=== PATIENT | female | born 1990 | race Caucasian/White ===

== ENCOUNTER 2021-08-26 17:30 | Outpatient (CLI) | payer BC | END 2021-08-26 17:31 | disposition home or self-care (01) | LOC: SLEEPLAB 17:30 | PROVIDERS: ATTEND Family Medicine | DX: G47.33 Obstructive sleep apnea (adult) (pediatric) (principal); R53.83 Other fatigue; R09.89 Other specified symptoms and signs involving the circulatory and respiratory systems; K21.9 Gastro-esophageal reflux disease without esophagitis; R06.83 Snoring; F41.9 Anxiety disorder, unspecified; G47.00 Insomnia, unspecified; F98.8 Other specified behavioral and emotional disorders with onset usually occurring in childhood and adolescence; E66.9 Obesity, unspecified; Z68.38 Body mass index [BMI] 38.0-38.9, adult | CPT/HCPCS: 95800 ==

== ENCOUNTER 2024-03-15 09:33 | Outpatient (CLI) | payer BC ==
[2024-03-15] MEDS ORDERED: Magnevist 469MG/ML 20 ML VIAL ONE (15:33)
== END 2024-03-15 09:34 | disposition home or self-care (01) ==
LOC: BICMRI 09:33
PROVIDERS: ATTEND Internal Medicine Hematology & Oncology
DX: C50.811 Malignant neoplasm of overlapping sites of right female breast (principal)
CPT/HCPCS: C8908

== ENCOUNTER 2024-04-15 07:12 | Day surgery (SDC) | payer BC ==
[2024-04-15] MEDS ORDERED: Lidocaine 1% PF 5 ML VIAL ONE (09:19)
[2024-04-15] MEDS ORDERED: PROPOFOL 20 ML ONE (09:19)
[2024-04-15] MEDS ORDERED: Rocuronium Bromide 10 MG/ML (10ML VIAL) ONE (09:19)
[2024-04-15] MEDS ORDERED: fentaNYL PF 100 MCG/2 ML SYRINGE ONE ×2 (09:20→13:14)
[2024-04-15] MEDS ORDERED: Isosulfan Blue 50 MG/5 ML VIAL ONE ×2 (09:29→10:56)
[2024-04-15] MEDS ORDERED: EPINEPHrine 1 MG/ML VIAL ONE ×2 (09:29→09:39)
[2024-04-15] MEDS ORDERED: Bupivacaine 0.25% HCL 30 ML VIAL ONE (09:30)
[2024-04-15] MEDS ORDERED: Heparin 5,000 UNITS/ML VIAL ONE (10:46)
[2024-04-15] MEDS ORDERED: Acetaminophen 500 MG TAB ONE (10:47)
[2024-04-15] MEDS ORDERED: Ketorolac Tromethamine 30 MG (1 mL) VIAL ONE ×2 (10:47→15:53)
[2024-04-15] MEDS ORDERED: Scopolamine 1 mg/72 hour Patch ONE (10:47)
[2024-04-15] MEDS ORDERED: Lidocaine 1% MPF 2 ML VIAL ONE (10:47)
[2024-04-15] MEDS ORDERED: Lidocaine 1% (PF) 30 ML VIAL ONE (10:53)
[2024-04-15 11:05] LABS: #Basophils 0.04 10x3/uL (0.0-0.2); %Basophils 0.4 % (0.0-1.0); %Eosinophils 0.5 % (0.0-10.0); %Lymphocytes 37.8 % (21.0-51.0); %Monocytes 6.6 % (0.0-10.0); %Neutrophils 54.5 % (42.0-75.0); Hematocrit 41.8 % (36.0-47.0); Hemoglobin 13.5 g/dL (12.0-16.0); Mean Corpuscular HGB CONC 32.3 g/dL (32.0-36.0); Mean Corpuscular Hemoglobin 27.3 pg (27.0-31.0); Mean Corpuscular Volume 84.4 fL (78.0-98.0); Mean Platelet Volume 9.9 fL (7.4-10.4); Platelet Count 312 10x3/uL (130-400); Red Blood Cell (RBC) Count 4.95 mill/uL (4.20-5.40)
[2024-04-15] MEDS ORDERED: Tranexamic Acid 1,000 MG/10 ML VIAL ONE (11:34)
[2024-04-15] MEDS ORDERED: Propofol 500 MG/50 ML VIAL ONE (11:35)
[2024-04-15 11:51] LABS: Anion Gap 15 mmol/L (10-20); BUN (Urea Nitrogen) 13 mg/dL (7.0-18.7); Calc. Creatinine Clearance 0 mL/min (70-130); Calcium 9.7 mg/dL (7.8-10.44); Carbon Dioxide 22 mmol/L (22-29); Chloride 103 mmol/L (98-107); Estimated GFR 98; Glucose 74 mg/dL (70-105); Potassium 4.1 mmol/L (3.5-5.1); Sodium 136 mmol/L (136-145)
[2024-04-15 11:52] LABS: BHCG - Serum Negative (NEGATIVE); Pregs Control Background? CLEAR/WHITE (CLR/WHITE); Pregs Control Bar Appear? YES (CONTROL BAR)
[2024-04-15] MEDS ORDERED: CEFAZOLIN 2 GM VIAL ONE (12:25)
[2024-04-15] MEDS ORDERED: Dexamethasone 20 MG/5 ML VIAL ONE (12:45)
[2024-04-15] MEDS ORDERED: PHENYLEPHRINE-NS 100 MCG/ML 10 ML SYRINGE ONE ×3 (12:51→16:07)
[2024-04-15] MEDS ORDERED: Dexmedetomidine 200 MCG/2 ML VIAL ONE (13:05)
[2024-04-15] MEDS ORDERED: PROPOFOL 40 ML ONE (14:29)
[2024-04-15] MEDS ORDERED: Indocyanine Green 25 MG/10 ML VIAL ONE (14:42)
[2024-04-15] MEDS ORDERED: ePHEDrine Sulfate 50 MG/10 ML VIAL ONE (14:46)
[2024-04-15] MEDS ORDERED: Ondansetron PF 4 MG/2 ML Vial ONE (15:43)
[2024-04-15] MEDS ORDERED: SUGAMMADEX SODIUM 200 MG/2 ML VIAL ONE (16:20)
[2024-04-15] MEDS ORDERED: HYDROcodone/Acetaminophen 5/325 mg Tablet ONE (17:19)
== END 2024-04-15 17:49 | disposition home or self-care (01) ==
LOC: SDC 07:12 → MERGE 07:12 → SDC 17:49
PROVIDERS: ATTEND Plastic Surgery
PROC: 0HTV0ZZ Resection of Bilateral Breast, Open Approach (ICD-10-PCS; principal; 2024-04-15)
PROC: 07B50ZX Excision of Right Axillary Lymphatic, Open Approach, Diagnostic (ICD-10-PCS; principal; 2024-04-15)
DX: C50.911 Malignant neoplasm of unspecified site of right female breast (principal); F32.A Depression, unspecified; Z87.59 Personal history of other complications of pregnancy, childbirth and the puerperium; Z90.49 Acquired absence of other specified parts of digestive tract; Z88.5 Allergy status to narcotic agent; Z79.1 Long term (current) use of non-steroidal anti-inflammatories (NSAID); Z79.899 Other long term (current) drug therapy
CPT/HCPCS: 78195; 80048; 84703; 85025; 88307; 88309; 88341; 88342; A6258; A9541; J0171; J0665; J1100; J1644; J1885; J2405; J2704; Q9968

== ENCOUNTER 2024-04-26 13:55 | Day surgery (SDC) | payer BC ==
[2024-04-25 10:45] VITALS: BMI 31.1
[2024-04-26] MEDS ORDERED: Heparin 5,000 UNITS/ML VIAL ONE (14:27)
[2024-04-26] MEDS ORDERED: CEFAZOLIN 2 GM VIAL ONE (14:27)
[2024-04-26] MEDS ORDERED: fentaNYL PF 100 MCG/2 ML SYRINGE ONE ×4 (16:16→18:57)
[2024-04-26] MEDS ORDERED: Midazolam HCl 2 mg/2 ml Vial ONE (16:16)
[2024-04-26] MEDS ORDERED: PROPOFOL 20 ML ONE (16:16)
[2024-04-26] MEDS ORDERED: Lidocaine 1% PF 5 ML VIAL ONE (16:45)
[2024-04-26] MEDS ORDERED: PHENYLEPHRINE-NS 100 MCG/ML 10 ML SYRINGE ONE (17:04)
[2024-04-26] MEDS ORDERED: Ondansetron PF 4 MG/2 ML Vial ONE ×2 (17:30→19:40)
[2024-04-26] MEDS ORDERED: HYDROmorphone 0.5 MG/0.5 ML SYRINGE ONE ×2 (19:17→19:29)
[2024-04-26] MEDS ORDERED: HYDROcodone/Acetaminophen 5/325 mg Tablet ONE (19:32)
== END 2024-04-26 19:58 | disposition home or self-care (01) ==
LOC: SDC 13:55
PROVIDERS: ATTEND Plastic Surgery
PROC: 0HRV37Z Replacement of Bilateral Breast with Autologous Tissue Substitute, Percutaneous Approach (ICD-10-PCS; principal; 2024-04-26)
DX: C50.911 Malignant neoplasm of unspecified site of right female breast (principal); N64.1 Fat necrosis of breast; F32.A Depression, unspecified; Z90.49 Acquired absence of other specified parts of digestive tract; Z79.899 Other long term (current) drug therapy; Z88.8 Allergy status to other drugs, medicaments and biological substances; Z88.5 Allergy status to narcotic agent
CPT/HCPCS: 88305; J1171; J1644; J2250; J2405; J2704